=== PATIENT | female | born 1975 ===

== ENCOUNTER 2018-02-07 08:10 | Emergency (ER) | payer OTHER ==
[2018-02-07 08:18] VITALS: PULSE 72
--- NOTE | 2018-02-07 08:58 | C.PDOC ---
History Of Present Illness 43yo female, presents to ED for evaluation of a new onset left sided headache, ongoing for the past 3 days. She reports the headache is left sided and radiates to her left neck and left upper shoulders. She denies any trauma, injuries, nausea, vomiting, fever, chills, photophobia, weakness or vision changes. She has no other medical complaints. PMD: None provided Time Seen by Provider: 02/07/18 08:34 Chief Complaint (Nursing): Headache History Per: Patient History/Exam Limitations: no limitations Onset/Duration Of Symptoms: Days Current Symptoms Are (Timing): Still Present Preceeding Symptoms: denies: Visual Disturbances Associated Symptoms: denies: Photophobia, Blurred Vision, Nausea, Vomiting, Extremity Weakness Additional History Per: Patient Past Medical History Reviewed: Historical Data, Nursing Documentation, Vital Signs Vital Signs: Last Vital Signs Temp 99 F 02/07/18 11:27 Pulse 72 02/07/18 11:27 Resp 16 02/07/18 11:27 BP 116/72 02/07/18 11:27 Pulse Ox 98 02/07/18 11:27 - Medical History PMH: Gastritis, Gastrointestinal Ulcer, Hiatal Hernia, Kidney Stones Denies: Diabetes, Hepatitis, HIV, HTN, Seizures, Sexually Transmitted Disease Surgical History: No Surg Hx Family History: States: No Known Family Hx, Unknown Family Hx - Social History Hx Tobacco Use: No Hx Alcohol Use: Yes Hx Substance Use: No - Immunization History Hx Influenza Vaccination: No Hx Pneumococcal Vaccination: No Review Of Systems Except As Marked, All Systems Reviewed And Found Negative. Constitutional: Negative for: Fever, Chills Eyes: Negative for: Vision Change Musculoskeletal: Positive for: Neck Pain (left sided) Neurological: Positive for: Headache (left sided). Negative for: Weakness, Numbness Physical Exam - Physical Exam Appears: Non-toxic, No Acute Distress Skin: Normal Color, Warm, Dry Head: Atraumatic, Normacephalic Eye(s): bilateral: Normal Inspection, PERRL, EOMI Neck: Normal ROM, Paracervical Tenderness (left paracervical muscle spasm. ), Supple Chest: Symmetrical Cardiovascular: Rhythm Regular Respiratory: Normal Breath Sounds Extremity: Normal ROM, Tenderness (left upper shoulder spasm with reproducible pain) Neurological/Psych: Oriented x3, Normal Motor, Normal Sensation ED Course And Treatment O2 Sat by Pulse Oximetry: 99 (RA) Pulse Ox Interpretation: Normal Progress - Re-Evaluation Re-evaluation Note: 02/07/18 12:20 IMPROVED COMPARED TO PRIOR. VSS NEURO INTACT - Data Reviewed Data Reviewed: Diagnostic imaging Medical Decision Making Medical Decision Making: Impression: Headache Plan: -- CT Head w/o contrast -- Urinalysis -- Valium 5mg PO -- Tylenol 650mg PO -- Reglan 10mg PO Disposition Counseled Patient/Family Regarding: Studies Performed, Diagnosis, Need For Followup, Rx Given - Disposition Referrals: [facility] [Outside] [facility] [Outside] Disposition: HOME/ ROUTINE Disposition Time: 12:21 Condition: IMPROVED Prescriptions: Acetaminophen [Tylenol Extra Strength] 2 tab PO Q6 #30 tablet Metoclopramide [Reglan] 1 tab PO TID PRN #25 tab PRN Reason: Nausea/Vomiting Instructions: Headache, Adult (DC) Forms: [employer] (Swedish), Work Excuse Print Language: GAMBIAN - Clinical Impression Clinical Impression: Headache, Muscle spasm - Scribe Statement The provider has reviewed the documentation as recorded by the Scribe (Amanda Malik) Provider Attestation: All medical record entries made by the Scribe were at my direction and personally dictated by me. I have reviewed the chart and agree that the record accurately reflects my personal performance of the history, physical exam, medical decision making, and the department course for this patient. I have also personally directed, reviewed, and agree with the discharge instructions and disposition.
[2018-02-07 09:07] LABS: HCG,QUALITATIVE URINE NEGATIVE (NEGATIVE)
[2018-02-07 09:23] LABS: SQUAMOUS EPITHIAL 1 /hpf (0-5); URINE BILIRUBIN NEGATIVE (NEGATIVE); URINE BLOOD 3+ (NEGATIVE); URINE CLARITY Clear (Clear); URINE COLOR Straw (YELLOW); URINE GLUCOSE (UA) NORMAL (Normal); URINE LEUKOCYTE ESTERASE NEG Leu/uL (Negative); URINE PROTEIN NEGATIVE (NEGATIVE); URINE UROBILINOGEN NORMAL mg/dL (0.2-1.0)
--- NOTE | 2018-02-07 11:09 | CT ---
PROCEDURE: CT HEAD WITHOUT CONTRAST. HISTORY: Headache COMPARISON: 08/25/2016. TECHNIQUE: Axial computed tomography images were obtained through the head/brain without intravenous contrast. Radiation dose: Total exam DLP = 815.05 mGy-cm. This CT exam was performed using one or more of the following dose reduction techniques: Automated exposure control, adjustment of the mA and/or kV according to patient size, and/or use of iterative reconstruction technique. FINDINGS: HEMORRHAGE: No intracranial hemorrhage. BRAIN: There are mild chronic microangiopathic changes. There is no mass, mass effect or abnormal extra-axial fluid collection. There is no territorial infarction. The midline sagittal structures are normal. VENTRICLES: The ventricles are normal in size, shape and configuration. CALVARIUM: There is no calvarial fracture or extracranial soft tissue swelling. PARANASAL SINUSES: Predominantly clear. MASTOID AIR CELLS: Predominantly clear. OTHER FINDINGS: None. IMPRESSION: No acute intracranial abnormality.
[2018-02-07 11:28] VITALS: BP 116/72; RESP 16; TEMP 99
[2018-02-07 12:22] VITALS: O2SAT 99
== END 2018-02-07 12:30 | disposition home or self-care (01) ==
LOC: C.ER 08:10 → EDBD 08:10 → C.ER 12:30
DX: M62.838 Other muscle spasm (principal); R51 Headache